=== PATIENT | female | born 2000 | race Caucasian/White ===

== ENCOUNTER 2021-06-10 15:08 | Emergency (ER) | payer MEDICAID, SELFPAY ==
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
[2021-06-10 15:18] VITALS: BP 140/92; PULSE 96; RESP 18; TEMP 36.4; O2SAT 95
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
[2021-06-10 16:17] LABS: Abs Immature Grans 0.07 10^3/uL (0.0-0.06); Absolute Basophil Count 0.02 10^3/uL (0.0-0.2); Absolute Eosinophil Count 0.11 10^3/uL (0.0-0.7); Absolute Lymphocyte Count 1.82 10^3/uL (1.2-3.4); Absolute Monocyte Count 0.43 10^3/uL (0.1-0.8); Absolute Neutrophil Count 6.53 10^3/uL (1.2-6.7); Basophils % 0.2; Eosinophils % 1.2; HCT 40.4 % (36.0-46.0); HGB 12.4 g/dL (11.2-15.7); Immature Grans % 0.8; Lymphocytes % 20.3; MCH 26.4 pg (27.0-33.0); MCHC 30.7 % (32.0-36.0); MCV 86.1 fL (80-95); MPV 9.7 fL (8.0-11.0); Monocytes % 4.8; Neutrophils % 72.7; Nucleated RBC 0 %; Platelet Count 237 10^3/uL (130-400); RBC 4.69 10^6/uL (3.93-5.22); RDW 14.5 % (11.7-14.6); WBC 8.98 10^3/uL (4.4-10.8)
[2021-06-10 16:31] LABS: ALT 22 U/L (14-59); AST 15 U/L (15-37); Albumin 3.4 g/dL (3.4-5.0); Alkaline Phosphatase 79 U/L (46-116); Anion Gap 6.1 mmol/L (3-11); BUN 11 mg/dL (7-18); Bilirubin, Total 0.2 mg/dL (0.2-1.0); CO2 29.9 mmol/L (21.0-32.0); CREATININE 0.6 mg/dL (0.55-1.02); Calcium 9.1 mg/dL (8.5-10.1); Chloride 105 mmol/L (98-107); Glucose 102 mg/dL (74-106); Sodium 141 mmol/L (136-145); Total Protein 7.6 g/dL (6.4-8.2)
[2021-06-10 16:49] LABS: D-Dimer 302 ng/mlFEU (<500)
--- NOTE | 2021-06-10 17:17 | DI.RAD_ITS ---
Exam(s) XR CHEST 2V PA LATERAL EXAM: XR CHEST 2V PA LATERAL CLINICAL HISTORY: Cough TECHNIQUE: 2D digital imaging was performed. COMPARISON: No exams were available for comparison FINDINGS: MEDIASTINUM: Normal. HEART: Normal. PULMONARY VASCULATURE: Normal. LUNGS: Clear. PLEURAL SPACE: No pleural effusion or pneumothorax. BONE:Within normal limits for the patient's age. OTHER FINDINGS:Normal. IMPRESSION: No acute pulmonary findings. DATA REPOSITORY: RADIATION DOSE DELIVERED:
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
[2021-06-10 18:02] VITALS: BP 143/93; PULSE 85
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
[2021-06-10 20:00] VITALS: BP 122/82; PULSE 84; RESP 17; TEMP 36.8; O2SAT 95
[2021-06-10] MEDS: Omnipaque 350 MG/ML 100 ML BTL IJ (20:14)
[2021-06-10] MEDS: Normal Saline Flush 10 ML SYR IVP (20:28)
--- NOTE | 2021-06-10 20:55 | DI.VRAD_ITS ---
PROCEDURE INFORMATION: Exam: CTA Chest With Contrast Exam date and time: 06/10/2021 6:48 PM Age: 21 years old Clinical indication: Shortness of breath; Patient HX: SOB, HX pe, abnl cxr TECHNIQUE: Imaging protocol: Computed tomographic angiography of the chest with contrast. 3D rendering (Not supervised by radiologist): MIP and/or 3D reconstructed images were created by the technologist. COMPARISON: CR XR CHEST 2V PA LATERAL 06/10/2021 5:15 PM FINDINGS: Pulmonary arteries: Breathing motion limits exam. No evidence of pulmonary embolus to the segmental level. Aorta: Unremarkable. Lungs: Patchy bilateral ground-glass opacities are seen. These may reflect atelectasis or infection. Diffuse bronchial wall thickening is seen. This is compatible with bronchitis or reactive airway disease. There is some filling defects in the bilateral left greater than right lower lobes that may reflect mucous plugging. Pleural spaces: Unremarkable. No pneumothorax. No pleural effusion. Heart: Unremarkable. No cardiomegaly. No pericardial effusion. Lymph nodes: Mildly prominent mediastinal lymph nodes. Bones/joints: Unremarkable. No acute fracture. Soft tissues: Unremarkable. IMPRESSION: 1. No evidence of pulmonary embolus. 2. Patchy bilateral ground-glass opacities. Differential includes atelectasis/reactive airway disease versus infection. Dictated and Authenticated by: Lupillo Shah MD. Ordering:HARISH Romeo MD
[2021-06-10 21:25] VITALS: BP 144/103; PULSE 85; RESP 18; TEMP 36.8; O2SAT 97
[2021-06-11 16:22] LABS: COVID-19 RT-PCR UVMMC Result Negative (Negative)
--- NOTE | 2021-06-12 08:54 | NUR.NOTE ---
Message to call er for test result leftNursing Note:
--- NOTE | 2021-06-12 09:14 | NUR.NOTE ---
Nursing Note: Return call by Leah--Negative Covid result given. Verbalizes understanding. States will call pcp to schedule f/u appt.
== END 2021-06-10 21:35 | disposition home or self-care (01) ==
PROVIDERS: Emergency Medicine; Emergency Provider Student in an Organized Health Care Education/Training Program; PCP Registered Nurse
DX: J18.8 Other pneumonia, unspecified organism (principal); J20.9 Acute bronchitis, unspecified; M79.662 Pain in left lower leg; V47.0XXA Car driver injured in collision with fixed or stationary object in nontraffic accident, initial encounter; Z20.822 Contact with and (suspected) exposure to COVID-19; Z03.818 Encounter for observation for suspected exposure to other biological agents ruled out
CPT/HCPCS: 36415; 71275; 80053; 81025; 93005; 94640; 99285; U0003; 71046; 73590; 83735; 85025; 85379; 93010; J3490

== ENCOUNTER 2021-10-21 10:08 | Emergency (ER) | payer MEDICAID, SELFPAY ==
[2021-10-21 10:16] VITALS: BP 146/97; PULSE 104; RESP 18; TEMP 36.5; O2SAT 94
[2021-10-21 10:39] VITALS: RESP 20
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
[2021-10-21 11:31] LABS: Abs Immature Grans 0.03 10^3/uL (0.0-0.06); Absolute Basophil Count 0.03 10^3/uL (0.0-0.2); Absolute Lymphocyte Count 1.44 10^3/uL (1.2-3.4); Absolute Monocyte Count 0.51 10^3/uL (0.1-0.8); Absolute Neutrophil Count 5.14 10^3/uL (1.2-6.7); Basophils % 0.4; Eosinophils % 1.4; HCT 42.6 % (36.0-46.0); HGB 12.7 g/dL (11.2-15.7); Immature Grans % 0.4; Lymphocytes % 19.9; MCH 25.8 pg (27.0-33.0); MCHC 29.8 % (32.0-36.0); MCV 86.6 fL (80-95); MPV 9.1 fL (8.0-11.0); Neutrophils % 70.9; Nucleated RBC 0 %; Platelet Count 225 10^3/uL (130-400); RBC 4.92 10^6/uL (3.93-5.22); RDW 14.6 % (11.7-14.6); RDW-SD 46.2 fL; WBC 7.25 10^3/uL (4.4-10.8)
[2021-10-21 11:52] LABS: HCG Qual (Serum) Negative
[2021-10-21 11:55] LABS: ALT 17 U/L (14-59); AST 16 U/L (15-37); Albumin 3.4 g/dL (3.4-5.0); Alkaline Phosphatase 92 U/L (46-116); Anion Gap 6.9 mmol/L (3-11); BUN 11 mg/dL (7-18); Bilirubin, Total 0.2 mg/dL (0.2-1.0); CO2 28.1 mmol/L (21.0-32.0); CREATININE 0.6 mg/dL (0.55-1.02); Calcium 8.7 mg/dL (8.5-10.1); Chloride 104 mmol/L (98-107); Glucose 104 mg/dL (74-106); Potassium 4.1 mmol/L (3.5-5.1); Sodium 139 mmol/L (136-145); TSH 1.61 uIU/mL (0.36-3.74); Total Protein 7.9 g/dL (6.4-8.2)
--- NOTE | 2021-10-21 12:27 | DI.VRAD_ITS ---
PROCEDURE INFORMATION: Exam: US Duplex Lower Extremity Veins, Bilateral Exam date and time: 10/21/2021 11:04 AM Age: 21 years old Clinical indication: Edema, localized and swelling (edema) of limb; Lower extremity, bilateral TECHNIQUE: Imaging protocol: Real-time duplex ultrasound of the extremities with 2-D corbett scale, color Doppler flow and spectral waveform analysis with image documentation. Complete exam focused on the bilateral lower extremity veins. COMPARISON: CR XR TIB/FIB LT 06/10/2021 5:10 PM FINDINGS: Right : No evidence of thrombus Left : No evidence of thrombus Soft tissues: Unremarkable. IMPRESSION: No evidence of deep vein thrombosis. Dictated and Authenticated by: Rashi Raphael MD. Ordering:FABIAN Chamorro MD
--- NOTE | 2021-10-21 12:27 | ED.GENADUL_ITS ---
Discharge Plan Disposition Patient Disposition: HOME Condition: Stable Discharge Details Clinical Impression: Mild peripheral edema Primary Care Provider: Magdalene Álvarez ED Provider: Ashtyn Arellano Home Meds and New Rx's Prescriptions: New furosemide [Lasix] 20 mg tablet 20 mg PO DAILY Qty: 5 RF: 0 Continued cyanocobalamin (vitamin B-12) 1,000 mcg tablet 1,000 mcg PO DAILY RF: 0 ascorbic acid (vitamin C) [Vitamin C] 500 mg tablet 500 mg PO DAILY RF: 0 ferrous sulfate 325 mg (65 mg iron) tablet 325 mg PO DAILY RF: 0 albuterol sulfate [ProAir HFA] 90 mcg/actuation HFA aerosol inhaler 2 inh INHALATION Q4H PRN PRNRF: 0 loratadine 10 mg tablet 10 mg PO DAILY RF: 0 escitalopram oxalate 10 mg tablet 10 mg PO DAILY RF: 0 Discharge Instructions Additional Instructions: Should he have persistent pain or swelling in your legs, recommend repeat ultrasound Take Lasix as prescribed, you may take it for 3 to 5 days Elevate your legs Please follow-up with your director of mechanical engineering and your primary care physician on Saturday Please return earlier should you have new or worsening complaints Referrals: Magdalene Álvarez, RN NEUROSURGICAL [Primary Care Provider] - Discharge Data Discharge Date/Time-TO BE ENTERED AT DEPARTURE: 10/21/21 12:40 Medical Decision Making Patient appears well, her DVT study for bilateral lower extremities does not show acute abnormality She is afebrile and nontoxic She is alert and oriented I did consider ordering a D-dimer, however patient does have a history of PE and my suspicion is quite low for this given her lack of hypoxia, tachypnea, or tachycardia I think the risk of ordering another CAT scan on this patient who has already had 2 CAT scans outweighs the benefit at time of my clinical examination Her diagnostic labs do not show acute abnormality and I think it is reasonable to place her on 3 to 5 days of Lasix 20 mg She is aware that this can cause electrolyte abnormalities and will follow up closely with that with her PCP She is given low threshold to return should she have new or worsening complaints She is instructed to follow-up with her director of mechanical engineering and her PCP at her scheduled appointment for emergent return earlier should she have new or worsening complaints Lab Data Lab results reviewed: Yes I reviewed the patient's lab results. HPI General Mode of arrival: ambulatory . Date/Time Provider Initiated Documentation: 10/21/21 10:14 . Limitations to Documentation: no limitations . Information obtained by: patient . HPI Narrative: This 21-year-old female presents with reports of peripheral edema. She reportedly have a history of similar symptoms in the past. She had approximately 40 pound weight gain since delivering her son in 2019. She denies any new shortness of breath but says the peripheral edema is recurring. She was last on Lasix several months ago that was prescribed by the emergency department. She states that she had improvement of her symptoms at that time. 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 Patient has been attempting to diet unsuccessfully. She states that she had persistent shortness of breath since 2019 as well. Denies tobacco abuse, chance of , exogenous hormones. Denies any recent illnesses. Denies worsening shortness of breath pain. States that her peripheral edema is unchanged at the evening or throughout the day. Denies any significant pain aside from some mild cramping. Denies any injuries. Prior history of PE in 2019 this was 4 months postoperatively. She was told that she does not have known coagulopathy and has been off oral anticoagulation for 2 years. Related Data Home Medications Medication Instructions Recorded Confirmed albuterol sulfate [ProAir HFA] 2 inh INHALATION Q4H PRN PRN 06/10/21 10/21/21 ascorbic acid (vitamin C) [Vitamin 500 mg PO DAILY 06/10/21 10/21/21 C] cyanocobalamin (vitamin B-12) 1,000 mcg PO DAILY 06/10/21 10/21/21 escitalopram oxalate 10 mg PO DAILY 06/10/21 10/21/21 ferrous sulfate 325 mg PO DAILY 06/10/21 10/21/21 loratadine 10 mg PO DAILY 06/10/21 10/21/21 furosemide [Lasix] 20 mg PO DAILY #5 tab 10/21/21 Previous Rx's Medication Instructions Recorded furosemide [Lasix] 20 mg PO DAILY #5 tab 10/21/21 Allergies Allergy/AdvReac Type Severity Reaction Status Date / Time No Known Allergies Allergy Unverified 10/21/21 10:25 General Stated Complaint: GenMedical RAIN: 3 Review of Systems All systems reviewed & are unremarkable except as noted in HPI and below PFSH All Active Problems (Updated 10/21/21 @ 12:30 by JANNA Wang) Bronchitis (Acute) Pneumonia (Acute) Mild peripheral edema (Acute) Social History Smoking/Tobacco Use Status: Never Smoking risk assessment performed?: Yes Alcohol Intake: never Substance use type: does not use Do you feel safe at home: Yes Do you feel safe in your relationship?: Yes Exam Const General: cooperative, comfortable and no acute distress Eyes Sclera: sclerae normal Resp Effort & Inspection: normal respiratory effort Auscultation: clear to auscultation bilaterally Cardio Rate: regular rate Rhythm: regular rhythm GI Inspection: normal to inspection Skin General skin exam: no rashes or lesions noted Neuro General: patient alert and patient oriented x3 Extrem Other: 1+ edema to bilateral lower extremities, neurovascularly intact, no tenderness of the bilateral lower extremities have new skin rashes or lesions Course Vital Signs Vital signs: Vital Signs Temperature 36.5 C 10/21/21 10:16 Pulse 104 H 10/21/21 10:16 Respiratory Rate 18 10/21/21 10:16 Blood Pressure 146/97 H 10/21/21 10:16 Pulse Oximetry 94 10/21/21 10:16 Temperature 36.5 C 10/21/21 10:16 Temperature Source Temporal Artery Scan 10/21/21 10:16 Pulse 104 H 10/21/21 10:16 Respiratory Rate 20 10/21/21 10:39 Respiratory Effort 10/21/21 10:39 Respiratory Depth Normal 10/21/21 10:39 Respiratory Pattern Normal 10/21/21 10:39 Blood Pressure 146/97 H 10/21/21 10:16 Blood Pressure Position Sitting 10/21/21 10:16 Pulse Oximetry 94 10/21/21 10:16 Oxygen Delivery Method Room Air 10/21/21 10:16 Oxygen Flow Rate 0 10/21/21 10:16 Pain Level 1 10/21/21 10:16 Lab/Test Results Lab/Test Results: Laboratory Tests Range/Units 10/21/21 10/21/21 10/21/21 11:20 11:20 11:20 WBC (4.4-10.8) 10^3/uL 7.25 RBC (3.93-5.22) 10^6/uL 4.92 Hgb (11.2-15.7) g/dL 12.7 Hct (36.0-46.0) % 42.6 MCV (80-95) fL 86.6 MCH (27.0-33.0) pg 25.8 L MCHC (32.0-36.0) % 29.8 L RDW (11.7-14.6) % 14.6 Plt Count (130-400) 10^3/uL 225 MPV (8.0-11.0) fL 9.1 Immature Gran % 0.4 Neutrophils % 70.9 Lymphocytes % 19.9 Monocytes % 7.0 Eosinophils % 1.4 Basophils % 0.4 Nucleated RBC % % 0 Absolute Neutrophils (1.2-6.7) 10^3/uL 5.14 Absolute Lymphocytes (1.2-3.4) 10^3/uL 1.44 Absolute Monocytes (0.1-0.8) 10^3/uL 0.51 Absolute Eosinophils (0.0-0.7) 10^3/uL 0.10 Absolute Basophils (0.0-0.2) 10^3/uL 0.03 Sodium (136-145) mmol/L 139 Potassium (3.5-5.1) mmol/L 4.1 Chloride (98-107) mmol/L 104 Carbon Dioxide (21.0-32.0) mmol/L 28.1 Anion Gap (3-11) mmol/L 6.9 BUN (7-18) mg/dL 11 Creatinine (0.55-1.02) mg/dL 0.6 Estimated GFR/1.73 m2 (mL/min/1.73m2) >= 60.00 Glucose (74-106) mg/dL 104 Calcium (8.5-10.1) mg/dL 8.7 Total Bilirubin (0.2-1.0) mg/dL 0.2 AST (15-37) U/L 16 ALT (14-59) U/L 17 Alkaline Phosphatase (46-116) U/L 92 Total Protein (6.4-8.2) g/dL 7.9 Albumin (3.4-5.0) g/dL 3.4 TSH (0.36-3.74) uIU/mL 1.61 Serum HCG, Qual Negative
[2021-10-21 12:33] VITALS: BP 133/84; PULSE 84; RESP 18; O2SAT 84
== END 2021-10-21 12:40 | disposition home or self-care (01) ==
PROVIDERS: Emergency Provider Physician Assistant; PCP Registered Nurse
DX: R60.9 Edema, unspecified (principal); Z86.711 Personal history of pulmonary embolism
CPT/HCPCS: 36415; 80053; 99284; 84443; 84703; 85025; 93970; 99283

== ENCOUNTER 2022-02-05 08:51 | Outpatient (CLI) | payer MEDICAID, SELFPAY ==
--- NOTE | 2022-02-05 08:45 | RT.EKG_ITS ---
APPROVED REPORT Exam: Resting ECG Reason for Exam: LEVY Patient Location: O HR:92 bpm ECG Measurements Heart Rate 92 AXIS MN 128 P 43 QRSd 83 QRS 22 QT 356 T 42 QTc 441 Conclusion Sinus rhythm...normal P axis, V-rate 50- 99 Baseline wander in lead(s) V4,V5,V6 Normal Electrocardiogram
== END 2022-02-05 08:52 | disposition home or self-care (01) ==
LOC: DI.CARD 08:52
PROVIDERS: PCP Registered Nurse; Visit Provider Internal Medicine Cardiovascular Disease
DX: R06.09 Other forms of dyspnea (principal)
CPT/HCPCS: 93010